=== PATIENT | female | born 1995 | race Hispanic/Latino ===

== ENCOUNTER 2020-02-27 06:54 | Outpatient (CLI) | payer BC ==
--- NOTE | 2020-02-27 09:11 | ULT ---
PELVIC ULTRASOUND: INDICATION: Polycystic ovarian syndrome. The technologist also gives a history of irregular menses. FINDINGS: Transabdominal ultrasound of pelvis performed. Uterus has normal size and appearance. Endometrium appears echogenic and thickened. The technologist measures endometrium at 10 mm; however , there are other images which would suggest endometrial thickness of over 1.5 cm. The ovaries are identified and appear unremarkable. Small follicles are seen which are subcentimeter . Color Doppler no active disease spectral analysis demonstrates blood flow to both ovaries. No sangita e fluid. IMPRESSION: Thickened echogenic endometrium. POS: [facility]W
== END 2020-02-27 06:55 | disposition home or self-care (01) ==
LOC: BICULT 06:54
PROVIDERS: ATTEND Nurse Practitioner
DX: E28.2 Polycystic ovarian syndrome (principal); R93.89 Abnormal findings on diagnostic imaging of other specified body structures
CPT/HCPCS: 76856; 93976